=== PATIENT | male | born 1940 | race Caucasian/White ===

== ENCOUNTER → 2017-01-12 | Day surgery (SDC) | payer MEDICARE, OTHER ==
[2017-01-12] VITALS (9 sets, daily range): BP systolic 97–139; BP diastolic 6–75; PULSE 67–80; RESP 8–20; O2SAT 95–100
[~2017-01-12] VITALS: Ht 188 cm; Wt 100.9 kg
[~2017-01-12] MED LIST: ADV250INH IH; ALBU8.5H2 INHALATION; ASCO-294 PO; Acetaminophen IV 1,000 MG in IV Premix 1 EACH IV ONE; CITA40TA13 PO; CYCL10TA9 PO; CeFAZolin 2 Gm/50 mL D5W IV Premix IV ONE; CeFAZolin Inj 2 gm / 50mL D5W IV ONE; Clindamycin Inj 900 MG in IV Premix 1 EACH IV ONE; Dexamethasone 4 mg/mL Inj ONE; EPHEDrine Sulfate 50 mg/mL Inj IVPUSH PRN; EPHEDrine/NS 5 mg/mL 5 mL Syringe ONE; FINA5TAB9 PO; FISH1CAP15 PO; GABA-502 PO; HYDROmorphone 1 mg/mL Inj IVPUSH PRN; LISI-567 PO; Lactated Ringer's 1,000 ML IV ONE; Lactated Ringer's 1,000 ML IV SCH; Lactated Ringer's 500 ML IV PRN; Lidocaine PF 1% 30 mL Inj ONE; METO50TA3 PO; MetoCLOpramide 5 mg/mL 2 mL Inj IVPUSH PRN; NITR0.4T6 SL; OMEP40CA36 PO; OXYC-407 PO; OXYC1TAB24 PO; Ondansetron 2 mg/mL 2 mL Inj IVPUSH PRN; Ondansetron 2 mg/mL 2 mL Inj ONE; PRAZ2CAP2 PO; Phenylephrine 10,000 mCg/mL Inj IVPUSH PRN; Phenylephrine/NS 100 mCg/mL 10 mL Syringe IVPUSH ONE; Propofol 10,000 mCg/mL 20 mL Inj ONE; SIMV40TA5 PO; WARF3TAB7 PO; [UNRECOGNIZED DRUG - OTHER]; fentaNYL-PF 50 mCg/mL 2 mL Inj IVPUSH PRN; fentaNYL-PF 50 mCg/mL 2 mL Inj ONE
[2017-01-12 06:49] LABS: INR 1.04 ratio
--- NOTE | 2017-01-12 07:10 | PCM.HPANE ---
Patient Data Surgeon Admitting Provider: Attending Provider:Renetta Koenig MD Primary Care Physician:Negin Rodriguez PA-C Other Provider:Rainer Berger Anesthesia Reason for Visit Bladder Neck Obstruction, Urinary Retention BLADDER NECK OBSTRUCTION, URINARY RETENTION Ht/WT & BMI Height (Feet): 6 Height (Inches): 2 Weight (Kilograms): 100.9 Body Mass Index 28.00 Allergies Coded Allergies: No Known Allergies (Unverified Allergy, Unknown, 01/11/15) Past Anesthesia History Anesthesia History: Denies:: Abnormal Airway, Anesthesia Reactions, Difficult Intubation, Fam Anesthesia Reaction, Fam Malignant Hypertherm, Malignant Hyperthermia Diabetes History Hx Diabetes?: No MRSA MRSA: No Medications Blood Thinner: Coumadin Hypertension Medication: Yes Home Meds Incl Beta Issa: Yes (METOPROLOL) Date Beta Issa Taken: Jan 12, 2017 Time Beta Issa Taken: 0430 Reported Medications Warfarin Sodium 3 Mg Tablet3 Mg PO DAILY 30 Days Ref 0 01/08/17 Ascorbate Calcium (Vitamin C)500 Mg Zdihds269 Mg PO DAILY 01/08/17 Simvastatin 40 Mg Qngsik96 Mg PO HS 30 Days Ref 0 01/08/17 Prazosin 2 Mg Capsule2 Mg PO HS 01/08/17 Omeprazole 40 Mg Capsule.dr40 Mg PO DAILY Ref 0 01/08/17 Nitroglycerin SL 0.4 Mg Tab.subl0.4 Mg SL PRN For Chest Pain 01/08/17 Metoprolol Tartrate 50 Mg Orsldh25 Mg PO BID 30 Days Ref 0 01/08/17 Lisinopril 20 Mg Kmkkyw98 Mg PO DAILY 30 Days Ref 0 01/08/17 Gabapentin 300 Mg Pywhkdp172 Mg PO TID Ref 0 01/08/17 Fish Oil/Dha/Epa (Fish Oil 1,200 mg Fish Oil)1 Each Capsule1 Each PO DAILY 01/08/17 Finasteride 5 Mg Tablet5 Mg PO DAILY 30 Days Ref 0 01/08/17 Cyclobenzaprine 10 Mg Tcvbls14 Mg PO TID PRN Spasm 01/08/17 Citalopram 40 Mg Bkizel08 Mg PO DAILY 30 Days Ref 0 01/08/17 Albuterol HFA (Proair HFA)8.5 Gm Hfa.aer.ad2 Puffs INHALATION Q4H PRN For Shortness of Breath #1 INHALER 01/08/17 Fluticasone/Salmeterol (Advair 250-50 Diskus)60 Puff/Inh Disk1 Puff IH BID #1 DISK Ref 0 01/08/17 Discontinued Reported Medications oxyCODONE-Acetaminophen 5-325 mg 1 Each Tablet1 Tab PO Q6H PRN For Pain Ref 0 01/08/17 [methanime] No Conflict Check1 Gm BID 01/08/17 [place]-3 Fatty Acids/Fish Oil (Fish Oil 1,200 mg Softgel)1 Each Capsule1 Each PO DAILY 01/11/15 oxyCODONE-Acetaminophen 5-325 mg 1 Each Tablet1 Tab PO Q4H PRN For Pain Ref 0 01/11/15 Albuterol HFA 8.5 Gm Hfa.aer.ad1 Puff IH Q4 PRN For Shortness of Breath #1 INHALER Ref 0 01/11/15 Mometasone Furoate (Asmanex)220 Mcg Aer.pow.ba2 Puffs IH BID 01/11/15 Finasteride 5 Mg Tablet5 Mg PO DAILY 30 Days Ref 0 01/11/15 Omeprazole Magnesium (Omeprazole)20 Mg Capsule.dr40 Mg PO DAILY 30 Days Ref 0 01/11/15 Metoprolol Tartrate 50 Mg Kduyjt87 Mg PO BID 30 Days Ref 0 01/11/15 Lisinopril 20 Mg Lvhouc94 Mg PO DAILY 30 Days Ref 0 01/11/15 Cyclobenzaprine 10 Mg Xtrgqy77 Mg PO DAILY Ref 0 01/11/15 Simvastatin 40 Mg Hpclmv75 Mg PO HS 30 Days Ref 0 01/11/15 History HEENT History: Positive for:: Cataracts (prosthetic eye on right) Denies:: Abnormal Airway Difficult Intubation Dysphagia Glaucoma Hearing Problem Sinus Problem TMJ Hx of Heart Problems?: Yes Cardiovascular History: Positive for:: Atrial Fibrillation Hypertension Irregular Heartbeat (a fib) Denies:: AICD Abdominal Aortic Aneurism Heart Murmur Pacemaker Peripheral Vascular Rheumatic Fever Thrombophlebitis Hx of Respiratory Problem?: Yes Respiratory History: Positive for:: Asthma (chronic cough) Use of Inhalers / NEBS Denies:: COPD Emphysema Oxygen Administration Pneumonia Tuberculosis Use of C-PAP Machine (sleep study done, no CPAP recommended) Hx Neurologic Problems?: Yes Neurological History: Positive for:: TIA ("possible" little mini strokes, unsure of ) Denies:: Alzheimer's Disease CVA Headaches Multiple Sclerosis Parkinson's Disease Seizures Hx of GI Problems?: Yes Gastrointestinal History: Positive for:: Gastroesphageal Reflux (past hx of ) Denies:: Cirrhosis Gall Bladder Disease Gastrointestinal Bleeding Hepatitis Rectal Bleeding Hx of Problems?: Yes Genitourinary History: Positive for:: Urinary Tract Infection (hx of recurrent , not current ) Denies:: Kidney Stones Male Hx: Positive for:: Prostate Problems (hx of turp x2 prior- current admission problem) Skin History: Denies:: History Skin Disorders? Pressure Ulcers Hx Musculoskeletal Problems?: Yes Musculoskeletal History: Positive for:: Back Injury (back problems- recent MRI ) Musculoskeletal Trauma (aging joints- not one joint in particular) Osteoarthritis Denies:: Fibromyalgia Joint Replacement Hx of Psycho/Social Problems?: Yes Psycho Social History: Positive for:: Hx Depression Hx Surgeries?: Yes (Turp, eye surgery, hernia, osteomyelitis leg) Hx Any Other Health Problems?: Yes Other History: Positive for:: Cancer (BCC -skin cancer arm ) Denies:: Thyroid Disease History Blood Transfusions: Positive for:: Accept Blood Products? Denies:: Blood Transfusions (unsure of - prob no) Hx Diabetes: No Hx Alcohol Use: NoHx Substance Use: No Smoking Status: Former Smoker Have You Smoked inLast 12 mo: No Stop/Bang S-Snoring: Do You Snore Loudly: No T-Tired: feel tired, fatigued: No O-Obsered: Observed not breath: No P-Blood Pressure: treated: Yes B- Body Mass Index > 35 kg/m2: No A- Age over 50: Yes N- Neck Large Circumference: No G- Gender Male: Yes LINDY Total Score: 3 Risk Assessment Category Category 1A: Patient has history of documented sleep apnea, and HAS NOT received any narcotic, sedative or anesthesia administration during this stay. Category 1B: Patient has history of documented sleep apnea, and HAS received any narcotic , sedative or anesthesia administration during this stay Category 2: Patient has SUSPECTED Obstructive Sleep Apnea, and HAS received any narcotic , sedative or anesthesia administration during this stay. Category 3: Patient has SUSPECTED Obstructive Sleep Apnea and HAS NOT received narcotic, sedative or anesthesia administration during this stay. Category 4: Outpatient in Procedural Areas with known sleep apnea or who screen positive for High Risk via the STOP/BANG questionnaire. Exam Exam Vital Signs Vital Signs Date Time Temp Pulse Resp B/P Pulse Ox O2 Delivery O2 Flow Rate FiO2 01/12/17 06:10 36 71 18 139/75 97 Room Air General Appearance: Alert, Oriented X3, Cooperative, No Acute Distress HEENT/AIRWAY: MP 1 Lungs: Normal Air Movement Heart: Regular Rate/Rhythm Meds/Labs/Diagnostics Admission Meds Current Medications Lactated Ringer's 1,000 ml @ 120 mls/hr Q8H20M ONCE IV Last administered on 05:59; Start 01/12/17 at 05:00; Stop 01/12/17 at 13:19 Acetaminophen/ Premix (Tylenol IV/IV Premix) 100 ml @ 0 mls/hr OT ONCE IV Last administered on 01/12/17 06:25; Start 01/12/17 at 06:00; Stop 01/12/17 at 06:01; Status DC Labs Test 01/12/17 06:20 Prothrombin Time 11.1sec (8.1-12.5) Prothromb Time International Ratio 1.04ratio Plan Impression Patient chart reviewed, patient interviewed and anesthestic plan with risks, benefits, and alternatives discussed, and informed consent obtained. NPO Status: 01/11/17 ASA Physical Status: ASA3 Severe Disease Anesthetic Plan: GA Bene/Risks/Altern/Consents: Yes HP Complete Prior to Induction: Yes Isabella Jennings DO Jan 12, 2017 07:10
--- NOTE | 2017-01-12 08:26 | PCM.ANEP1 ---
Post Anesthesia Phase 1 PACU Phase 1 Assessment Vital Signs Vital Signs Date Time Temp Pulse Resp B/P Pulse Ox O2 Delivery O2 Flow Rate FiO2 01/12/17 06:10 36 71 18 139/75 97 Room Air Anesthetic Administered: GA Level of Alertness: Sleeping, hard to arouse LUCAS's with Equal Strength: Yes Pain: No Nausea or Vomiting: No Airway Device: Oralpharangeal Airway Oxygen Delivery: Simple Mask Lungs: Normal Air Movement Isabella Jennings DO Jan 12, 2017 08:26
--- NOTE | 2017-01-12 08:27 | PCM.ANEP2 ---
Post Anesthesia Evaluation ASA/CMS Post Anesthesia VS in Patient's Normal Range?: Yes Resp Stable; Airway Patent?: Yes CV Function & Hydration Stable: Yes Mental Status Recovered?: Yes Pain control Satisfactory?: Yes N/V Control Satisfactory?: Yes Isabella Jennings DO Jan 12, 2017 08:27
[2017-01-12 10:15] LABS: APPEARANCE,URINE CLEAR (CLEAR,HAZY); COLOR,URINE YELLOW (YELLOW); OCCULT BLOOD,URINE NEGATIVE (NEGATIVE); PH,URINE 6.5 (5.0-8.0); UROBILINOGEN,URINE NORMAL (NORMAL)
--- NOTE | 2017-01-12 13:22 | OP ---
[address] [address] OPERATIVE REPORT PATIENT: QUINTIN MACDONALD : 1940 MR#: [id number] ADMIT: 01/12/2017 JOB ID: [id number] DATE OF SURGERY: 01/12/2017 PREOPERATIVE DIAGNOSIS(ES): 1. Incomplete bladder emptying. 2. Obstructing prostatic regrowth. 3. History of recurrent urinary tract infection. POSTOPERATIVE DIAGNOSIS(ES): 1. Incomplete bladder emptying. 2. Obstructing prostatic regrowth. 3. History of recurrent urinary tract infection. OPERATION PERFORMED: Redo transurethral resection of prostate. SURGEON: Renetta Koenig MD ANESTHESIOLOGIST: Isabella Jennings DO ANESTHESIA: General. FINDINGS: Urethra normal. External sphincter intact. Prostate status post TUR with an obstructing nodule in the proximal midline prostatic fossa that effectively occludes the open bladder neck. Bladder, normal orifices bilaterally. Clear efflux urine. No stone, tumor, foreign body visualized. PROCEDURAL SUMMARY: The patient was positioned supine and was administered general anesthesia. He was then repositioned in semi-lithotomy, and the lower abdomen, genitalia, and groin were prepped and draped in sterile fashion. The 25-Romanian resectoscope was then passed to the lower urinary tract under direct visualization, with the findings as described above. Next, the working element was fitted with the button and resection of the above-described lesion was undertaken. Hemostasis was excellent. The bladder was then drained completely and all instrumentation was removed. The patient was then repositioned in supine, awakened, [facility], and transferred to recovery in stable condition.
== END | disposition home or self-care (01) ==
LOC: SAS 05:42
PROVIDERS: ATTEND Specialist
DX: N32.0 Bladder-neck obstruction (principal); N40.1 Benign prostatic hyperplasia with lower urinary tract symptoms; R39.14 Feeling of incomplete bladder emptying; Z87.440 Personal history of urinary (tract) infections; I48.0 Paroxysmal atrial fibrillation; Z79.01 Long term (current) use of anticoagulants; I10 Essential (primary) hypertension; J45.909 Unspecified asthma, uncomplicated
CPT/HCPCS: 36415; 52630; 81000; 85610; 87086; J0131; J0690; J1100; J2370; J2405; J3010; J7120

== ENCOUNTER 2017-04-02 11:15 | Day surgery (SDC) | payer MEDICARE, OTHER ==
[~2017-04-02] VITALS: Ht 188 cm; Wt 100.0 kg
[~2017-04-02 11:15] MED LIST changes: -Acetaminophen IV 1,000 MG in IV Premix 1 EACH IV ONE; -CeFAZolin 2 Gm/50 mL D5W IV Premix IV ONE; -CeFAZolin Inj 2 gm / 50mL D5W IV ONE; -Clindamycin Inj 900 MG in IV Premix 1 EACH IV ONE; -Dexamethasone 4 mg/mL Inj ONE; -EPHEDrine Sulfate 50 mg/mL Inj IVPUSH PRN; -EPHEDrine/NS 5 mg/mL 5 mL Syringe ONE; -HYDROmorphone 1 mg/mL Inj IVPUSH PRN; -Lactated Ringer's 1,000 ML IV ONE; -Lactated Ringer's 1,000 ML IV SCH; -Lactated Ringer's 500 ML IV PRN; -Lidocaine PF 1% 30 mL Inj ONE; -MetoCLOpramide 5 mg/mL 2 mL Inj IVPUSH PRN; -OXYC1TAB24 PO; -Ondansetron 2 mg/mL 2 mL Inj IVPUSH PRN; -Ondansetron 2 mg/mL 2 mL Inj ONE; -Phenylephrine 10,000 mCg/mL Inj IVPUSH PRN; -Phenylephrine/NS 100 mCg/mL 10 mL Syringe IVPUSH ONE; -Propofol 10,000 mCg/mL 20 mL Inj ONE; -[UNRECOGNIZED DRUG - OTHER]; -fentaNYL-PF 50 mCg/mL 2 mL Inj IVPUSH PRN; -fentaNYL-PF 50 mCg/mL 2 mL Inj ONE
[2017-04-02] MEDS ORDERED: Propofol 10,000 mCg/mL 20 mL Inj ONE (11:16)
[2017-04-02 12:06] VITALS: BP 114/67; PULSE 70; RESP 16; O2SAT 93
[2017-04-02] MEDS ORDERED: Lactated Ringer's 1,000 ML IV SCH (12:16)
--- NOTE | 2017-04-02 12:16 | PCM.HPANE ---
Patient Data Surgeon Admitting Provider: Attending Provider:Torey Erickson MD Primary Care Physician:Negin Rodriguez PA-C Other Provider:Rainer Berger Anesthesia Reason for Visit Hematochezia, Gerd Ht/WT & BMI Height (Feet): 6 Height (Inches): 2 Weight (Kilograms): 100 Body Mass Index 28.00 Allergies Coded Allergies: No Known Allergies (Unverified Allergy, Unknown, 04/01/17) Past Anesthesia History Anesthesia History: Denies:: Abnormal Airway, Anesthesia Reactions, Difficult Intubation, Fam Anesthesia Reaction, Fam Malignant Hypertherm, Malignant Hyperthermia Diabetes History Hx Diabetes?: No MRSA MRSA: No Medications Blood Thinner: Coumadin Last Dose Blood Thinner: March 28, 2017 Home Meds Incl Beta Issa: Yes Date Beta Issa Taken: Apr 02, 2017 Time Beta Issa Taken: 0700 Reported Medications Oxycodone HCl/Acetaminophen 5-325 (Endocet 5-325)1 Each Tablet1-2 Tablet PO Q4H PRN For Pain 04/01/17 Warfarin Sodium 3 Mg Tablet3 Mg PO DAILY 30 Days Ref 0 01/08/17 Ascorbate Calcium (Vitamin C)500 Mg Riryjj023 Mg PO DAILY 01/08/17 Simvastatin 40 Mg Uoevrm02 Mg PO HS 30 Days Ref 0 01/08/17 Omeprazole 40 Mg Capsule.dr40 Mg PO DAILY Ref 0 01/08/17 Nitroglycerin SL 0.4 Mg Tab.subl0.4 Mg SL PRN For Chest Pain 01/08/17 Metoprolol Tartrate 50 Mg Pqhufz78 Mg PO BID 30 Days Ref 0 01/08/17 Lisinopril 20 Mg Ptjwjj31 Mg PO DAILY 30 Days Ref 0 01/08/17 Gabapentin 300 Mg Ggnywdw494 Mg PO TID Ref 0 01/08/17 Fish Oil/Dha/Epa (Fish Oil 1,200 mg Fish Oil)1 Each Capsule1 Each PO DAILY 01/08/17 Finasteride 5 Mg Tablet5 Mg PO DAILY 30 Days Ref 0 01/08/17 Cyclobenzaprine 10 Mg Rhqlxe56 Mg PO TID PRN Spasm 01/08/17 Citalopram 40 Mg Xtsttx82 Mg PO DAILY 30 Days Ref 0 01/08/17 Albuterol HFA (Proair HFA)8.5 Gm Hfa.aer.ad2 Puffs INHALATION Q4H PRN For Shortness of Breath #1 INHALER 01/08/17 Fluticasone/Salmeterol (Advair 250-50 Diskus)60 Puff/Inh Disk1 Puff IH BID #1 DISK Ref 0 01/08/17 Discontinued Reported Medications Prazosin 2 Mg Capsule2 Mg PO HS 01/08/17 History History of ENT Problems?: No HEENT History: Positive for:: Cataracts (prosthetic eye on right) Denies:: Abnormal Airway Difficult Intubation Dysphagia Hearing Problem Sinus Problem TMJ Denture Type: None Teeth Condition: Within Normal Limits Hx of Heart Problems?: Yes Cardiovascular History: Positive for:: Atrial Fibrillation Chest Pain Hypertension Irregular Heartbeat (a fib) Denies:: AICD Abdominal Aortic Aneurism Heart Murmur Pacemaker Rheumatic Fever Thrombophlebitis Valvular Heart Disease Hx of Respiratory Problem?: Yes Respiratory History: Positive for:: Asthma Denies:: COPD Cough Emphysema Hemoptysis Oxygen Administration Pneumonia Tuberculosis Use of C-PAP Machine (sleep study done, no CPAP recommended) Hx Neurologic Problems?: Yes Neurological History: Positive for:: CVA (TIA) Denies:: Alzheimer's Disease Headaches Multiple Sclerosis Parkinson's Disease Seizures Hx of GI Problems?: Yes Hx of Problems?: Yes Genitourinary History: Positive for:: Urinary Tract Infection (hx of recurrent , not current ) Denies:: Kidney Stones Male Hx: Positive for:: Prostate Problems (hx of turp x2 prior- current admission problem) Skin History: Denies:: History Skin Disorders? Pressure Ulcers Hx Musculoskeletal Problems?: Yes Musculoskeletal History: Positive for:: Back Injury (back problems- recent MRI ) Musculoskeletal Trauma (aging joints- not one joint in particular) Denies:: Fibromyalgia Joint Replacement Hx of Psycho/Social Problems?: Yes Psycho Social History: Positive for:: Hx Depression Denies:: Anxiety Hx Surgeries?: Yes (PROSTATE) Hx Any Other Health Problems?: Yes Other History: Positive for:: Cancer (BCC -skin cancer arm ) Denies:: Thyroid Disease History Blood Transfusions: Denies:: Blood Transfusions (unsure of - prob no) Hx Diabetes: No Hx Alcohol Use: No (32 YEARS QUIT)Hx Substance Use: No Smoking Status: Former Smoker Have You Smoked inLast 12 mo: No Stop/Bang Treated for Sleep Apnea?: No Do You Have a CPAP Machine?: No S-Snoring: Do You Snore Loudly: Yes T-Tired: feel tired, fatigued: No O-Obsered: Observed not breath: No P-Blood Pressure: treated: Yes B- Body Mass Index > 35 kg/m2: No A- Age over 50: Yes N- Neck Large Circumference: No G- Gender Male: Yes LINDY Total Score: 4 LINDY Risk Assessment: Low Risk, <3 Yes Risk Assessment Category Category 1A: Patient has history of documented sleep apnea, and HAS NOT received any narcotic, sedative or anesthesia administration during this stay. Category 1B: Patient has history of documented sleep apnea, and HAS received any narcotic , sedative or anesthesia administration during this stay Category 2: Patient has SUSPECTED Obstructive Sleep Apnea, and HAS received any narcotic , sedative or anesthesia administration during this stay. Category 3: Patient has SUSPECTED Obstructive Sleep Apnea and HAS NOT received narcotic, sedative or anesthesia administration during this stay. Category 4: Outpatient in Procedural Areas with known sleep apnea or who screen positive for High Risk via the STOP/BANG questionnaire. Exam Exam General Appearance: Oriented X3 HEENT/AIRWAY: MP 2 Lungs: Normal Air Movement Heart: Regular Rate/Rhythm Plan Impression Patient chart reviewed, patient interviewed and anesthestic plan with risks, benefits, and alternatives discussed, and informed consent obtained. ASA Physical Status: ASA3 Severe Disease Anesthetic Plan: MAC Bene/Risks/Altern/Consents: Yes HP Complete Prior to Induction: Yes Eder Koch MD Apr 02, 2017 12:16
[2017-04-02] MEDS ORDERED: MetoCLOpramide 5 mg/mL 2 mL Inj IVPUSH PRN (12:20)
[2017-04-02] MEDS ORDERED: Ondansetron 2 mg/mL 2 mL Inj IVPUSH PRN (12:20)
[2017-04-02] MEDS: Lactated Ringer's 1,000 ML IV ONE ×2 (12:31→12:42)
[2017-04-02 13:07] VITALS: BP 88/57; PULSE 65; RESP 16; O2SAT 90
--- NOTE | 2017-04-02 13:09 | PCM.ENDEGD ---
EGD Date of Service: Apr 02, 2017 Physician Torey Erickson MD Pre Procedure Diagnosis: Reflux Post Procedure Dx & Findings: Gastritis and gastric polyps Procedure Esophagogastroduodenoscopy PROCEDURE IN DETAIL: After proper sedation, Olympus video endoscope was inserted into patient's mouth and esophagus was successfully intubated. Scope introduced esophagus. Esophagus showed normal shiny whitish mucosa consistent with squamous cell component. Z line was intact at 40 cm from the incisors. Scope advanced to the stomach. The antrum showed some redness edema consistent with gastritis. Biopsies obtained. Also in the body of the stomach, there were several small fundic polyps. The largest was about 6 mm. Sampling biopsies obtained.. Cardia fundus body antrum pylorus were all visualized. Retroflexion was done. Stomach was easily inflated and deflatable using air. Scope further events to the distal duodenum. Duodenum revealed normal villous structures with normal appearing folds without any mass ulcer erosion. Impression Gastritis Fundic polyps Recommendation Await biopsies Presedation Assessment Risks and Benefits Informed consent was obtained from the patient after all risks and benefits including but not limited to drug reaction, infection, pain, bleeding, perforation, as well as alternatives were discussed. Patient monitoring Continuous pulse oximetry, cardiac monitoring, blood pressure monitoring, IV access, and oxygen at 2L per nasal cannula. Complications There were no periprocedural complications identified. Post Procedure Plan Post Procedure Recommendations 1. Restrict activities today. 2. Resume normal activities in the morning. 3. Resume medications. 4. GERD behavioral modification: - Avoid fatty, acidic, spicy, large meals - Do not lie down after meals - Do not eat or drink anything for at least 2 1/2 hours before going to bed at night - Discontinue tobacco and alcohol - Decrease or avoid caffeine - Avoid chocolate and mints - Decrease weight - Avoid aspirin and non steroidal anti-inflammatory agents (NSAID) such as Aleve, Advil, Mobic, Naproxen, Ibuprofen, etc 5. Add proton pump inhibitor. Take 30 minutes before 1st meal of the day. 6. Patient informed of normal post procedure side effects as bloating, drowsiness, blood streaking in the stool 7. If gastric biopsy reveal H.pylori, continue with appropriate treatment 8. If small bowel biopsy reveals celiac, continue with appropriate treatment 9. Please don't hesitate to call me with any questions Torey Erickson MD Apr 02, 2017 13:09
--- NOTE | 2017-04-02 13:11 | PCM.ENDCOL ---
Colonoscopy Date of Service: Apr 02, 2017 Physician Torey Erickson MD Pre Procedure Diagnosis: Screening and hematochezia Post Procedure Dx & Findings: Polyp hemorrhoids diverticulum Procedure Colonoscopy PROCEDURE IN DETAIL: Prep adequate After unremarkable rectal examination the Olympus video colonoscope was inserted patient's anal canal and was advanced to cecum. Landmarks were identified including the ileocecal valve and appendiceal orifice. Scope was withdrawn systematically. Visualized colonic mucosa showed healthy shiny mucosa with normal healthy-appearing vasculature. 2 small polyps noted in the rectum. One of them had appearance of a possible adenomatous polyp. These are 2 mm in size. Both were resected completely using cold snare. In the sigmoid colon to the descending colon, medium sized diverticuli noted. There were several them. In the rectum retroflexion was done which showed hemorrhoids. Anal canal was inspected carefully on the way out and hemorrhoids noted. Impression Polyps 2 status post complete removal Diverticuli Hemorrhoids Recommendation Repeat colonoscopy in 5 years Diverticular diet Presedation Assessment Risks and Benefits Informed consent was obtained from the patient after all risks and benefits including but not limited to drug reaction, infection, pain, bleeding, perforation, as well as alternatives were discussed. Patient monitoring Continuous pulse oximetry, cardiac monitoring, blood pressure monitoring, IV access, and oxygen at 2L per nasal cannula. Complications There were no periprocedural complications identified. Post Procedure Plan Post Procedure Recommendations 1. Restrict activities today. 2. Resume normal activities in the morning. 3. Resume medications. 4. Patient informed of normal post procedure side effects as bloating, drowsiness, blood streaking in the stool. 5. average risk CRCS. If colon polyps come back as: -Hyperplastic- can repeat colonoscopy in 10 years -Tubular adenoma- repeat colonoscopy in 5 years -Tubulovillous/villous adenoma- repeat colonoscopy in 3 years -If any dysplasia- return to clinic as soon as possible 6. Please don't hesitate to call me with any questions. Torey Erickson MD Apr 02, 2017 13:11
--- NOTE | 2017-04-02 13:14 | PCM.ANEP1 ---
Post Anesthesia PACU Phase 1 Assessment Vital Signs Vital Signs Date Time Temp Pulse Resp B/P Pulse Ox O2 Delivery O2 Flow Rate FiO2 04/02/17 13:07 65 16 88/57 90 Nasal Cannula 2 04/02/17 12:06 36.8 70 16 114/67 93 Room Air Anesthetic Administered: MAC Level of Alertness: Awake, talking Pain: No Nausea or Vomiting: No CV Function & Hydration Stable: Yes Airway Device: Lungs: Normal Air Movement PACU Phase 2 Assessment Patient Instructions Provided: N/A Eder Koch MD Apr 02, 2017 13:14
[2017-04-02 13:17] VITALS: BP 106/65; PULSE 63; RESP 16; O2SAT 93
[2017-04-02 13:27] VITALS: BP 136/71; PULSE 67; RESP 16; O2SAT 94
--- NOTE | 2017-04-06 18:01 | PATH ---
SURGICAL PATHOLOGY Attending Physician:Torey Erickson M.D. CASE STATUS: Signed Out PATIENT NAME: QUINTIN MACDONALD PID: [id number] : 1940 DATE COLLECTED:04/02/2017 00:00 SPECIMEN: 1: Stomach, Antrum, Biopsy 2: Stomach, Polyp, Biopsy 3: Rectum, Biopsy CLINICAL HISTORY: 1). ANTRUM BIOPSY 2). GASTRIC POLYP BIOPSY 3). RECTAL POLYP FINAL DIAGNOSIS: 1. Antrum, Biopsy: Portions of gastric body-type mucosa with no diagnostic abnormality. Negative for intestinal metaplasia, dysplasia, and malignancy. No definite H. pylori organisms identified by H&E stain. 2. Gastric Polyp, Biopsy: Histologic features of fundic gland polyp. Negative for intestinal metaplasia, dysplasia, and malignancy. 3. Rectum, Polyp, Biopsy: Hyperplastic polyp. ICD10: K63.5 GROSS DESCRIPTION: The specimen is received in three formalin filled containers labeled with the patient's name. 1). The specimen is sublabeled "antrum" and consists of 2 portions of tissue which aggregate to 0.3 x 0.3 x 0.2 CM. The specimen is entirely submitted in cassette 1A. 2). The specimen is sublabeled "gastric polyp" and consists of 2 portions of tissue which aggregate to 0.3 x 0.3 x 0.2 CM. The specimen is entirely submitted in cassette 2A. 3). The specimen is sublabeled "rectal polyp" and consists of 2 portions of tissue which aggregate to 0.4 x 0.4 x 0.3 CM. The specimen is entirely submitted in cassette 3A. 04/03/2017 [facility] ICD-9 CODES: CPT CODES: 1: 36463 2: 97849 3: 59335 Electronically Signed Out Tomasa Ayon MD [facility] [address], [place] [address] Technical component performed at [facility], [facility] [address], [place], [address]
== END 2017-04-02 23:59 | disposition home or self-care (01) ==
LOC: END 11:15
PROVIDERS: ATTEND Internal Medicine
DX: K62.1 Rectal polyp (principal); K31.7 Polyp of stomach and duodenum; K21.9 Gastro-esophageal reflux disease without esophagitis; K92.1 Melena; I10 Essential (primary) hypertension; E78.5 Hyperlipidemia, unspecified; I48.0 Paroxysmal atrial fibrillation; J45.909 Unspecified asthma, uncomplicated; F32.9 Major depressive disorder, single episode, unspecified; N40.0 Benign prostatic hyperplasia without lower urinary tract symptoms; K57.30 Diverticulosis of large intestine without perforation or abscess without bleeding; M54.5 Low back pain; Z79.891 Long term (current) use of opiate analgesic; Z79.01 Long term (current) use of anticoagulants; Z86.73 Personal history of transient ischemic attack (TIA), and cerebral infarction without residual deficits; Z85.828 Personal history of other malignant neoplasm of skin; Z87.891 Personal history of nicotine dependence
CPT/HCPCS: 43239; 45385; J7120

== ENCOUNTER → 2017-06-15 | Day surgery (SDC) | payer MEDICARE, OTHER ==
[~2017-06-15] VITALS: Ht 188 cm; Wt 100.9 kg
[2017-06-15] VITALS (12 sets, daily range): BP systolic 118–144; BP diastolic 65–83; PULSE 71–78; RESP 11–17; O2SAT 93–100
[~2017-06-15] MED LIST changes: +Acetaminophen IV 1,000 mg IV ONE; +Albuterol 2.5 mg/3 mL Inhalation Solution NEB ONE; +Albuterol-Ipratropium 3 mL Inhalation Solution NEB PRN; +Atropine 0.4 mg/mL Inj IVPUSH PRN; +Bupivacaine Liposome 1.3% 20 mL Inj INFILTRATE ONE; +CeFAZolin 2 Gm/50 mL D5W Duplex Bag IV ONE; +CeFAZolin 2 Gm/50 mL D5W IV Premix IV ONE; +Dexamethasone 4 mg/mL Inj ONE; +EPHEDrine Sulfate 50 mg/mL Inj IVPUSH PRN; +EPHEDrine/NS 5 mg/mL 5 mL Syringe ONE; +HYDROmorphone 1 mg/mL Inj IVPUSH PRN; +Labetalol 5 mg/mL 20 mL Inj IV PRN; +Lactated Ringer's 1,000 ML IV ONE; +Lactated Ringer's 1,000 ML IV SCH; +Lactated Ringer's 500 ML IV PRN; +MetoCLOpramide 5 mg/mL 2 mL Inj IVPUSH PRN; +Ondansetron 2 mg/mL 2 mL Inj IVPUSH PRN; +Ondansetron 2 mg/mL 2 mL Inj ONE; -PRAZ2CAP2 PO; +Phenylephrine 10,000 mCg/mL Inj IVPUSH PRN; +Phenylephrine/NS 100 mCg/mL 10 mL Syringe IVPUSH ONE; +Propofol 10,000 mCg/mL 20 mL Inj ONE; +fentaNYL-PF 50 mCg/mL 2 mL Inj IVPUSH PRN; +fentaNYL-PF 50 mCg/mL 2 mL Inj ONE
--- NOTE | 2017-06-15 06:54 | PCM.HPANE ---
Patient Data Date of Service: Jun 15, 2017 Surgeon Admitting Provider: Attending Provider:Renetta Koenig MD Primary Care Physician:Negin Rodriguez PA-C Other Provider:Rainer Berger Anesthesia Reason for Visit Left Hydrocele Ht/WT & BMI Height (Feet): 6 Height (Inches): 2 Weight (Kilograms): 100.9 Body Mass Index 28.00 Allergies Coded Allergies: No Known Allergies (Unverified Allergy, Unknown, 05/29/17) Past Anesthesia History Anesthesia History: Denies:: Abnormal Airway, Anesthesia Reactions, Difficult Intubation, Fam Anesthesia Reaction, Fam Malignant Hypertherm, Malignant Hyperthermia Diabetes History Hx Diabetes?: No MRSA MRSA: No Medications Blood Thinner: Coumadin Reported Medications Oxycodone HCl/Acetaminophen 5-325 (Endocet 5-325)1 Each Tablet1-2 Tablet PO Q4H PRN For Pain 04/01/17 Warfarin Sodium 3 Mg Tablet3 Mg PO DAILY 30 Days Ref 0 01/08/17 Ascorbate Calcium (Vitamin C)500 Mg Xtapop054 Mg PO DAILY 01/08/17 Simvastatin 40 Mg Sivcat91 Mg PO HS 30 Days Ref 0 01/08/17 Omeprazole 40 Mg Capsule.dr40 Mg PO DAILY Ref 0 01/08/17 Nitroglycerin SL 0.4 Mg Tab.subl0.4 Mg SL PRN For Chest Pain 01/08/17 Metoprolol Tartrate 50 Mg Gnotoe63 Mg PO BID 30 Days Ref 0 01/08/17 Lisinopril 20 Mg Ldkppk09 Mg PO DAILY 30 Days Ref 0 01/08/17 Gabapentin 300 Mg Xntalod485 Mg PO TID Ref 0 01/08/17 Fish Oil/Dha/Epa (Fish Oil 1,200 mg Fish Oil)1 Each Capsule1 Each PO DAILY 01/08/17 Finasteride 5 Mg Tablet5 Mg PO DAILY 30 Days Ref 0 01/08/17 Cyclobenzaprine 10 Mg Iafnpa81 Mg PO TID PRN Spasm 01/08/17 Citalopram 40 Mg Fajjpq36 Mg PO DAILY 30 Days Ref 0 01/08/17 Albuterol HFA (Proair HFA)8.5 Gm Hfa.aer.ad2 Puffs INHALATION Q4H PRN For Shortness of Breath #1 INHALER 01/08/17 Fluticasone/Salmeterol (Advair 250-50 Diskus)60 Puff/Inh Disk1 Puff IH BID #1 DISK Ref 0 01/08/17 History History of ENT Problems?: No HEENT History: Positive for:: Cataracts (prosthetic eye on right) Denies:: Abnormal Airway Difficult Intubation Dysphagia Hearing Problem Sinus Problem TMJ Denture Type: None Teeth Condition: Within Normal Limits Hx of Heart Problems?: Yes Cardiovascular History: Positive for:: Atrial Fibrillation Chest Pain Hypertension Irregular Heartbeat (a fib) Denies:: AICD Abdominal Aortic Aneurism Heart Murmur Pacemaker Rheumatic Fever Thrombophlebitis Valvular Heart Disease Hx of Respiratory Problem?: Yes Respiratory History: Positive for:: Asthma Denies:: COPD Cough Emphysema Hemoptysis Oxygen Administration Pneumonia Tuberculosis Use of C-PAP Machine (sleep study done, no CPAP recommended) Hx Neurologic Problems?: Yes Neurological History: Positive for:: CVA (TIA) Denies:: Alzheimer's Disease Dementia Headaches Multiple Sclerosis Parkinson's Disease Seizures Hx of GI Problems?: Yes Hx of Problems?: Yes Genitourinary History: Positive for:: Urinary Tract Infection (hx of recurrent , not current ) Denies:: Kidney Stones Male Hx: Positive for:: Prostate Problems (hx of turp x3 prior- ) Scrotal Mass (left hydrocele current admission problem ) Denies:: Testicular Surgery Skin History: Denies:: History Skin Disorders? Pressure Ulcers Hx Musculoskeletal Problems?: No Musculoskeletal History: Positive for:: Back Injury (back problems- recent MRI ) Musculoskeletal Trauma (aging joints- not one joint in particular) Denies:: Joint Replacement Hx of Psycho/Social Problems?: Yes Psycho Social History: Positive for:: Hx Depression Denies:: Anxiety Hx Surgeries?: Yes (PROSTATE) Hx Any Other Health Problems?: Yes Other History: Positive for:: Cancer (BCC -skin cancer arm ) Denies:: Thyroid Disease History Blood Transfusions: Denies:: Blood Transfusions (unsure of - prob no) Hx Diabetes: No Hx Alcohol Use: No (32 YEARS QUIT)Hx Substance Use: No Smoking Status: Former Smoker Have You Smoked inLast 12 mo: No Stop/Bang S-Snoring: Do You Snore Loudly: No T-Tired: feel tired, fatigued: No O-Obsered: Observed not breath: No P-Blood Pressure: treated: Yes B- Body Mass Index > 35 kg/m2: No A- Age over 50: Yes N- Neck Large Circumference: No G- Gender Male: Yes LINDY Total Score: 3 Risk Assessment Category Category 1A: Patient has history of documented sleep apnea, and HAS NOT received any narcotic, sedative or anesthesia administration during this stay. Category 1B: Patient has history of documented sleep apnea, and HAS received any narcotic , sedative or anesthesia administration during this stay Category 2: Patient has SUSPECTED Obstructive Sleep Apnea, and HAS received any narcotic , sedative or anesthesia administration during this stay. Category 3: Patient has SUSPECTED Obstructive Sleep Apnea and HAS NOT received narcotic, sedative or anesthesia administration during this stay. Category 4: Outpatient in Procedural Areas with known sleep apnea or who screen positive for High Risk via the STOP/BANG questionnaire. Exam Exam Vital Signs Vital Signs Date Time Temp Pulse Resp B/P Pulse Ox O2 Delivery O2 Flow Rate FiO2 06/15/17 06:50 35.7 71 17 138/78 96 Room Air General Appearance: Alert HEENT/AIRWAY: MP 1, MP 2 Lungs: Clear to Auscultation Heart: Regular Rate/Rhythm Meds/Labs/Diagnostics Admission Meds Current Medications Lactated Ringer's (Lr) 1,000 ml @ ud STK-MED ONCE IV Last administered on 06/15t 06:10; Start 06/15/17 at 06:10; Stop 06/15/17 at 06:49; Status DC Labs Test 06/15/17 06:15 Prothrombin Time 10.7sec (8.1-12.5) Prothromb Time International Ratio 1.00ratio Plan Impression Patient chart reviewed, patient interviewed and anesthestic plan with risks, benefits, and alternatives discussed, and informed consent obtained. NPO per Anesth. Guidelines: Yes ASA Physical Status: ASA3 Severe Disease Anesthetic Plan: GA Bene/Risks/Altern/Consents: Yes HP Complete Prior to Induction: Yes Mauri Weeks MD Jun 15, 2017 06:54
--- NOTE | 2017-06-15 09:25 | PCM.ANEP1 ---
Post Anesthesia PACU Phase 1 Assessment Date of Service: Jun 15, 2017 Vital Signs Vital Signs Date Time Temp Pulse Resp B/P Pulse Ox O2 Delivery O2 Flow Rate FiO2 06/15/17 09:15 72 14 125/74 95 Nasal Cannula 2 06/15/17 09:10 72 13 124/65 93 Nasal Cannula 2 06/15/17 09:05 73 14 133/72 98 Nasal Cannula 2 06/15/17 09:00 72 12 118/83 99 Simple Mask 8 06/15/17 08:55 73 15 122/79 99 Simple Mask 8 06/15/17 08:50 76 16 137/79 99 Simple Mask 8 06/15/17 08:45 36.5 75 11 136/77 100 Simple Mask 8 06/15/17 08:40 78 11 144/82 98 Simple Mask 8 06/15/17 08:36 36.5 77 12 143/83 97 Simple Mask 8 06/15/17 06:50 35.7 71 17 138/78 96 Room Air Level of Alertness: Awake, talking LUCAS's with Equal Strength: Yes Pain: No Nausea or Vomiting: No CV Function & Hydration Stable: Yes Airway Device: Oxygen Delivery: Simple Mask Lungs: Clear to Auscultation PACU Phase 2 Assessment Complications: No Patient Instructions Provided: N/A Mauri Weeks MD Jun 15, 2017 09:25
--- NOTE | 2017-06-15 23:15 | OP ---
[address] [address] OPERATIVE REPORT PATIENT: QUINTIN MACDONALD : 1940 MR#: [id number] ADMIT: 06/15/2017 JOB ID: [id number] DATE OF SURGERY: 06/15/2017 SURGEON: Renetta Koenig MD PREOPERATIVE DIAGNOSIS(ES): Symptomatic left hydrocele. POSTOPERATIVE DIAGNOSIS(ES): Symptomatic left hydrocele. OPERATION PERFORMED: Left hydrocelectomy. ANESTHESIOLOGIST: Mauri Solis MD ANESTHESIA: General plus 1.33% Exparel. FINDINGS: There was a multiloculated hydrocele. Most of the membranous sac was excised and discarded due to multiple septations. No scrotal dinesh was identified. The remainder of the structures appeared unremarkable and normal for age. PROCEDURE SUMMARY: The patient was positioned supine and was administered general anesthesia. The lower abdomen and genitalia were then prepped and draped in a sterile fashion. Local anesthetic was used to infiltrate the skin and subcutaneous tissue of the midline raphae. Using the needlepoint cautery pen, a midline incision was made in the midline scrotal raphae and cautery and blunt dissection were used to divide the layers of the subcutaneous Abbi's fascia down to the level of the tunica vaginalis of the left hemiscrotum. This was then carefully delivered in total from the left hemiscrotum. It was then opened along the midline and its contents were drained with the findings as described above. Using the cautery pen, multiple septums of membranous sac were then excised and discarded. Hemostasis was excellent. The testicle was then repositioned anatomically and was secured to the inferior and posterior scrotal wall using interrupted 2-0 Monocryl. The skin and subcutaneous tissue in the inferolateral left hemiscrotum was then infiltrated with local anesthetic. A 10-Tunisian Alexandru drain was then positioned in the left hemiscrotal space and brought out through a separate stab incision at the anesthetized location and was then secured in place with 2-0 nylon suture and affixed with bulb self-suction. The midline scrotal raphae was then closed with a running horizontal mattress of 2-0 Monocryl. The skin was then reapproximated with a running horizontal mattress of 2-0 Monocryl. The suture line was then dressed with antibiotic ointment and dry sterile fluffs, an athletic supporter was fitted to the patient. He was then awakened, transferred to the [facility], and transferred to recovery in stable condition.
== END | disposition home or self-care (01) ==
LOC: SAS 05:50
PROVIDERS: ATTEND Specialist
DX: N43.3 Hydrocele, unspecified (principal); N40.1 Benign prostatic hyperplasia with lower urinary tract symptoms; R33.9 Retention of urine, unspecified; R35.0 Frequency of micturition; I10 Essential (primary) hypertension; J45.909 Unspecified asthma, uncomplicated; Z87.891 Personal history of nicotine dependence
CPT/HCPCS: 36415; 55040; 85610; J0690; J1100; J2370; J2405; J2704; J3010; J7120; J7613